=== PATIENT | female | born 1980 | race Caucasian/White ===

== ENCOUNTER 2017-01-02 14:36 | Emergency (ER) | payer BC ==
[2017-01-02 14:46] VITALS: BP 111/71; PULSE 67; RESP 16; TEMP 97.9; O2SAT 99
--- NOTE | 2017-01-02 15:02 | UCPHY ---
H & P Time Seen by Provider: 01/02/17 14:44 Patient Type: Established HPI/ROS: This patient presents with a chief complaint of right calf pain which began approximately 1 week ago. The upper leg is not involved. She is not sure if the calf is swollen. She remembers no trauma. She denies any chest pain or shortness of breath. The patient was diagnosed with a DVT in October of 2014 and was on anticoagulants afterwards. She was seen here in January of 2015 and was on Xarelto. A Doppler ultrasound at that time was normal. Smoking Status: Current some day smoker Physical Exam: This is a well-developed well-nourished female who is in no acute distress. She is alert, lucid and has a normal mental status and also a normal gait. Examination of the lower leg reveals no swelling. There is some mild tenderness post anteriorly in the calf. CMS is intact distally. Constitutional: Initial Vital Signs Temperature (C) 36.6 C 01/02/17 14:43 Heart Rate 67 01/02/17 14:43 Respiratory Rate 16 01/02/17 14:43 Blood Pressure 111/71 01/02/17 14:43 O2 Sat (%) 99 01/02/17 14:43 O2 Delivery Mode Room Air Allergies/Adverse Reactions: No Known Allergies Allergy (Unverified 01/02/17 14:41) Home Medications: Medication Instructions Recorded NK [No Known Home Meds] 01/02/17 Medical Decision Making - Diagnostics Imaging: An ultrasound of the right lower extremity is negative for DVT or any other abnormality. Differential Diagnosis: Because of this patient's pain is currently unknown however I do not believe that it is related to any serious problem. Departure - Departure Disposition: Home, Routine, Self-Care Clinical Impression: Right calf pain Condition: Good Instructions: Leg Pain (ED) Additional Instructions: If your symptoms have not resolved in another 5-7 days you should be re- evaluated. Keep your leg elevated as much as possible. Adult Pain & Fever Control: We recommend Acetaminophen (Tylenol) and Ibuprofen (Motrin, Advil) for pain and fever control. When fever is high or pain severe, both drugs can be used at the same time, but at different intervals. Please note the time differences. Your dose is: Acetaminophen [650]mg every 4 to 6 hours ibuprofen [600]mg every [6] hours with food OR naproxen Sodium (Aleve) [440]mg every 12 hours. Note: do not take Acetaminophen with Hydrocodone (Vicodin, Lortab) or Oxycodone (Percocet). These medications also contain Acetaminophen. No more than 3000 mg of Acetaminophen should be taken in 24 hours (for an adult) . The maximal dose of ibuprofen that it is safe in a 24-hour period is 2400 mg. You may take 400 mg every 4 hours, 600 mg every 6 hours or 800 mg every 8 hours safely. Referrals: Sonia Jerry MD [Primary Care Provider] - As per Instructions - PQRS PQRS Measurement: Not applicable
== END 2017-01-02 15:55 | disposition home or self-care (01) ==
LOC: CED 14:36
DX: M79.662 Pain in left lower leg (principal); Z86.718 Personal history of other venous thrombosis and embolism; F17.210 Nicotine dependence, cigarettes, uncomplicated
CPT/HCPCS: 93971-PO; 99214-PO; G0463-PO

== ENCOUNTER → 2019-04-14 | Outpatient (CLI) | payer BC | LOC: CIMAGING 08:16 ==